=== PATIENT | female | born 1990 | race Caucasian/White ===

== ENCOUNTER 2023-07-18 19:25 | Emergency (ER) | payer BC, SELFPAY ==
[2023-07-18] VITALS (15 sets, daily range): BP systolic 134–145; BP diastolic 90–94; PULSE 75; RESP 18; TEMP 37.3; O2SAT 93–100; BMI 44.8
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
[2023-07-18] MEDS: BACITRACIN 0.9 GM PACKET 1 PACKET TOPICAL (19:56)
[2023-07-18] MEDS: KETOROLAC TROMETHAMINE 30 MG/ML VIAL IVP (19:57)
[2023-07-18] MEDS: ONDANSETRON PF 4 MG/2 ML VIAL IV (19:58)
[2023-07-18] MEDS: LORAZEPAM 2 MG/ML 1 ML VIAL 0.5 MG IV (19:58)
[2023-07-18] MEDS: 0.9 % SODIUM CHLORIDE 1,000 ML 1000 ML IV (19:59)
[2023-07-18] MEDS: LORAZEPAM 0.5 MG TABLET PO (21:23)
== END 2023-07-18 21:32 | disposition home or self-care (01) ==
PROVIDERS: Emergency Provider Emergency Medicine
DX: S02.2XXA Fracture of nasal bones, initial encounter for closed fracture (principal); S09.8XXA Other specified injuries of head, initial encounter; S00.83XA Contusion of other part of head, initial encounter; F41.9 Anxiety disorder, unspecified; Y04.2XXA Assault by strike against or bumped into by another person, initial encounter
CPT/HCPCS: 70450; 70486; 72125; 96374; 96375; 99285; J1885; J2060; J2405

== ENCOUNTER 2024-08-16 14:42 | Emergency (ER) | payer OTHER, SELFPAY ==
[2024-08-16 14:46] VITALS: BP 161/101; PULSE 80; TEMP 36.6; O2SAT 100; BMI 47.6
[2024-08-16 14:53] VITALS: BP 130/88
--- NOTE | 2024-08-16 14:53 | ED.EAR1 ---
HPI - Ear Problem General Chief complaint: Ear Stated complaint: EAR ACHE Time Seen by Provider: 08/16/24 14:42 Source: patient and family Mode of arrival: walk-in Limitations: no limitations History of Present Illness HPI Narrative: Patient is a 34-year-old female who presents to the emergency department for the evaluation of an earache that began today. She reports both ears are painful, she has significant nasal congestion and stuffiness. No fevers or vomiting. She has no concern for . She has been using ibuprofen and Tylenol this morning without improvement. She has no significant cough. No vomiting or diarrhea Related Data Home Medications ?Medication ?Instructions ?Recorded ?Confirmed buspirone 10 mg tablet 10 mg PO DAILY 08/16/24 08/16/24 olanzapine-fluoxetine 3 mg-25 mg 1 cap PO .QHS 08/16/24 08/16/24 capsule prazosin 1 mg capsule 1 mg PO .QHS 08/16/24 08/16/24 Previous Rx's ?Medication ?Instructions ?Recorded ketorolac 10 mg tablet 10 mg PO TID PRN pain #10 tabs 07/18/23 methocarbamol 750 mg tablet 750 mg PO TID PRN pain #20 tabs 07/18/23 amoxicillin 500 mg capsule 500 mg PO TID 10 days #30 caps 08/16/24 opvuhlptuvsfsew-tihiqotkjmadeby-FZ 10 ml PO Q6H PRN cold symptoms 08/16/24 2 mg-30 mg-10 mg/5 mL oral syrup #200 mL (Bromfed DM) ketorolac 10 mg tablet 10 mg PO TID PRN pain #10 tabs 08/16/24 Allergies Allergy/AdvReac Type Severity Reaction Status Date / Time No Known Drug Allergies Allergy Verified 07/18/23 19:37 Review of Systems ROS Constitutional Denies: fever or chills Ears, nose, mouth, and throat Reports: ear pain and nasal congestion; Denies: throat pain Cardiovascular Denies: chest pain Respiratory Denies: shortness of breath or cough Gastrointestinal Denies: nausea, vomiting or diarrhea Integumentary/Breast Denies: rash Neurological Denies: headache Hematologic/Lymphatic Denies: easy bruising or easy bleeding PFSH PFSH Social History Little interest or pleasure in doing things: not at all Feeling down, depressed, or hopeless: not at all Exam Narrative Exam Narrative: Gen.: Awake, alert, in no distress Head: Normocephalic, atraumatic ENT: Moist mucous membranes, bilateral TMs are erythematous and injected, no pharyngeal erythema Respiratory: No respiratory distress, lungs clear bilaterally Cardio: Regular rate and rhythm Extremities: Moves extremities equally Psych: Normal mood and affect Neuro: No focal neuro deficit Skin: Warm, dry, intact Constitutional Vital Signs, click to edit/add: Last Vital Signs Temp 97.8 F 08/16/24 14:46 Pulse 80 08/16/24 14:46 Resp 16 08/16/24 14:46 BP 130/88 08/16/24 14:53 Pulse Ox 100 08/16/24 14:46 O2 Del Method Room Air 08/16/24 14:46 Course Vital Signs Vital signs: Vital Signs Temperature 97.8 F 08/16/24 14:46 Pulse Rate 80 08/16/24 14:46 Respiratory Rate 16 08/16/24 14:46 Blood Pressure 161/101 H 08/16/24 14:46 Pulse Oximetry 100 08/16/24 14:46 Oxygen Delivery Method Room Air 08/16/24 14:46 Temperature 97.8 F 08/16/24 14:46 Pulse Rate 80 08/16/24 14:46 Respiratory Rate 16 08/16/24 14:46 Blood Pressure 130/88 08/16/24 14:53 Pulse Oximetry 100 08/16/24 14:46 Oxygen Delivery Method Room Air 08/16/24 14:46 Medical Decision Making [facility] Narrative Medical decision making narrative: Vital Signs stable, history and physical are consistent with upper respiratory infection and bilateral otitis media. Patient placed on Bromfed-DM, amoxicillin, Toradol for pain. Follow-up with PCP and return to the ER if symptoms change or worsen SUPERVISED APC VISIT, PHYSICIAN ATTESTATION: Based on the medical record the care appears appropriate. ? Medical Records Medical records reviewed: Yes I reviewed the patient's medical records Discharge Plan Discharge Chief Complaint: Ear Clinical Impression: Bilateral acute otitis media, Acute ear pain, URI (upper respiratory infection) Patient Disposition: Home, Self-Care Time of Disposition Decision: 14:52 Condition: Good Prescriptions / Home Meds: New amoxicillin 500 mg capsule 500 mg PO TID 10 Days Qty: 30 0RF ketorolac 10 mg tablet 10 mg PO TID PRN (Reason: pain) Qty: 10 0RF lyhbpeeirclswgj-ymztlipbs-CI [Bromfed DM] 2-30-10 mg/5 mL syrup 10 ml PO Q6H PRN (Reason: cold symptoms) Qty: 200 0RF No Action ketorolac 10 mg tablet 10 mg PO TID PRN (Reason: pain) Qty: 10 0RF methocarbamol 750 mg tablet 750 mg PO TID PRN (Reason: pain) Qty: 20 0RF buspirone 10 mg tablet 10 mg PO DAILY olanzapine-fluoxetine 3-25 mg capsule 1 cap PO .QHS prazosin 1 mg capsule 1 mg PO .QHS Print Language: Slovak Instructions: Ear Infection (ED), Upper Respiratory Infection (ED) Referrals: [facility] [Primary Care Provider] - 1 week
--- OUTSIDE RECORDS SUMMARY | 2024-08-16 14:54 | XMS_ITS | CCD ---
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 Comment on above: Performed By: #### U AMIC ####[address] [place] [address] Yeast NOT REPORTED Normal NONE [facility] Comment on above: Performed By: #### U AMIC ####[address] [place] [address] Encounters Encounter Date Encounter Type Care Provider Facility Start: 03-17-2024 ambulatory WYATT Westfall ty:SUSANNE Donald Start: 06-22-2022 End: 06-22-2022 ambulatory [facility] Facility:[facility] Start: 05-24-2022 End: 05-24-2022 ambulatory [facility] Start: 05-23-2022 End: 05-23-2022 ambulatory [facility] Facility:[facility] Start: 03-01-2022 End: 03-01-2022 ambulatory MICHELLE BENITEZ Facility:[facility]1 Start: 07-08-2021 End: 07-08-2021 Discharged Recurring DO Rene Cesar Work Phone: [facility] [address] Start: 05-25-2018 End: 05-25-2018 Emergency department patient visit [facility] Procedures Date Procedure Procedure Detail Performing Clinician Start: 05-25-2018 WET PREP, GENITAL Start: 05-25-2018 OCCULT BLOOD GASTRIC / DUODENUM Start: 05-25-2018 TUBE INSERTION Start: 05-25-2018 C.TRACHOMATIS N.GONO RRHOEAE DNA, URINE Start: 05-25-2018 LACTIC ACID, PLASMA Start: 05-25-2018 Urnls dip stick/tabl et reagent auto microscopy Start: 05-25-2018 Blood count complete automated Start: 05-25-2018 Comprehensive metabolic panel Start: 05-25-2018 Gonadotropin chorion ic quantitative Start: 05-25-2018 Prothrombin time Start: 05-25-2018 Thromboplastin time partial plasma/whole blood Payers Date Payer Category Payer Unknown [id number] [id number] [id number] 1990 Unknown [id number] 2.16.84 [id number] 1990 Unknown [id number] [id number] [id number] 1990 Unknown [id number] [id number] [id number] 1959 Self-pay [id number] Self-pay Self Pay [id number] Unknown Self Pay [id number] Social History Date Type Detail Facility Tobacco smoking stat [facility] Unknown if ever smoked [facility] Work Phone: Start: 1990 Sex Assigned At Female F [facility] Evaluation note Note Date & Type Note Facility Evaluation note No assessment information availa ble [facility] Work Phone: Summary Purpose Family History No Family History Records FoundNo Family History Records FoundNo Family History Records Found Advance Directives No Advanced Directives Records Found Advance Directive Response Recorded Date/ Time Advance Directives No May 2:21pm Chief Complaint and Reason for Visit Chief Complaint carpal tunnel Additional Source Comments INFORMATION SOURCE (unrecogn ized section and content) DATE CREATED AUTHOR 05/31/2018 [facility] DATE CREATED AUTHOR AUTHOR'S ORGANIZ ATION 06/23/2022 [facility] DATE CREATED AUTHOR AUTHOR'S ORGANIZ ATION 03/21/2024 [facility] Care Teams (unrecognized sec tion and content) Team Status: Inactive Member Role Status Dates Rene Cesar DO RES Attending Provider Active Services [facility] Primary Care Provider Active Team Status: Active Member Role Status Dates Services [facility] Primary Care Provider Active Goals (unrecognized section and content) Goals may be documented in a n alternate section FOR RECORDS PERTAINING TO PATIENTS WHO ARE OR HAVE BEEN ENROLLED IN A CHEMICAL DEPENDENCY/SUBSTANCEABUSE PROGRAM, SOME INFORMATION MAY BE OMITTED. This clinical summary was aggregated from multiple sources. Caution should be exercised in using it in the provision of clinical care. This summary normalizes information from multiple sources, and as a consequence, information in this document may materially change the coding, format and clinical context of patient data. In addition, data may be omitted in some cases. CLINICAL DECISIONS SHOULD BE BASED ON THE PRIMARY CLINICAL RECORDS. [facility] [employer] provides no warranty or guarantee of the accuracy or completeness of information in this document.
[2024-08-16] MEDS: KETOROLAC TROMETHAMINE 10 MG TABLET PO (14:57)
== END 2024-08-16 15:00 | disposition home or self-care (01) ==
PROVIDERS: Emergency Provider Emergency Medicine
DX: H66.93 Otitis media, unspecified, bilateral (principal); J06.9 Acute upper respiratory infection, unspecified; H92.03 Otalgia, bilateral
CPT/HCPCS: 99283